=== PATIENT | female | born 2000 | race Hispanic/Latino ===

== ENCOUNTER 2018-08-08 19:19 | Emergency (ER) | payer SELFPAY | END 2018-08-08 19:43 | disposition left against medical advice (07) | LOC: ER 19:19 | DX: R10.9 Unspecified abdominal pain (principal) ==

== ENCOUNTER 2018-11-07 14:24 | Emergency (ER) | payer SELFPAY ==
[~2018-11-07] VITALS: Ht 157.5 cm; Wt 76.2 kg
== END 2018-11-07 14:48 | disposition left against medical advice (07) ==
LOC: ER 14:24
DX: R10.9 Unspecified abdominal pain (principal)